=== PATIENT | female | born 1955 | race African-American/Black ===

== ENCOUNTER → 2017-05-06 | Outpatient (CLI) | payer OTHER ==
[~2017-05-06] MED LIST: ALBU1AER INH; ALBUAER3 INH; AMLO5TAB2 PO; CALC1TAB87 PO; CLIN1CAP6 PO; ERGO50000 PO; HYDR-2768 PO; HYDR25TA5 PO; LEVO75TA3 PO; MULT1TAB46 PO; OMEP20CA5 PO; OMEP20TA93 PO; PRED20 PO; REST15CA PO; TEMA15CA PO; TRAM50TA PO; [UNRECOGNIZED DRUG - CODE] PO
== END ==
LOC: CPRE 11:32
PROVIDERS: ATTEND Orthopaedic Surgery Sports Medicine
DX: M17.12 Unilateral primary osteoarthritis, left knee (principal)

== ENCOUNTER 2017-05-20 05:28 | Inpatient (IN) | payer OTHER ==
[~2017-05-20] VITALS: Ht 152.4 cm; Wt 86.5 kg
[~2017-05-20 05:28] MED LIST changes: -ALBU1AER INH; -CLIN1CAP6 PO; -ERGO50000 PO; -HYDR-2768 PO; -OMEP20CA5 PO; -PRED20 PO; -REST15CA PO
[2017-05-20] MEDS ORDERED: ROPIVACAINE PERI-ARTICULAR INJECTION. P-ARTICULR SCH ×5 (06:00)
[2017-05-20] MEDS ORDERED: LACTATED RINGER'S 1000 ML IV PRN (06:00)
[2017-05-20] MEDS ORDERED: VANCOMYCIN 1000 MG/NS 250 ML (for <70 kg) IV SCH ×2 (06:00)
[2017-05-20] MEDS ORDERED: TRANEXAMIC PERI-ARTICULAR 3,000 MG/NS 100 ML P-ARTICULR SCH ×2 (06:00)
[2017-05-20] MEDS ORDERED: CHLORHEXIDINE GLUCONATE 2 % 1 PACK (2 CLOTHS) TOPICAL PRN (06:00)
[2017-05-20] MEDS ORDERED: DEXAMETHASONE SOD PHOS 20 MG/5 ML VIAL IV PRN (06:00)
[2017-05-20] MEDS ORDERED: METOPROLOL TARTRATE 25 MG TAB PO PRN (06:00)
[2017-05-20] MEDS ORDERED: SODIUM CHLORID 0.9% 500 ML IV PRN (06:00)
[2017-05-20] MEDS ORDERED: TRANEXAMIC ACID INJ 1,300 MG in SODIUM CHLORIDE 0.9% INJ 100 ML IV SCH (06:00)
[2017-05-20] MEDS ORDERED: POVIDONE IODINE 7.5% SCRUB 118 ML BOTTLE TOPICAL SCH (06:00)
[2017-05-20] MEDS ORDERED: ACETAMINOPHEN 1000 MG/100 ML 100 ML IV ONE (06:40)
[2017-05-20] MEDS: CHLORHEXIDINE GLUCONATE 4% SOLN 120 ML BTL TOPICAL SCH (07:00)
[2017-05-20] MEDS ORDERED: HYDR-3288 PO (07:07)
[2017-05-20] MEDS ORDERED: ASPI81CH6 CHEW (07:08)
[2017-05-20] MEDS ORDERED: BUPIVACAINE LIPOSOME PF 1.3% 20 ML VIAL ONE (07:12)
[2017-05-20] MEDS ORDERED: LIDOCAINE HCL 1% PF 5 ML AMPULE ONE (07:12)
[2017-05-20] MEDS ORDERED: MIDAZOLAM HCL 2 MG/2 ML VIAL ONE (07:12)
[2017-05-20] MEDS ORDERED: GENTAMICIN SULFATE 80 MG/2 ML VIAL ONE (07:13)
[2017-05-20] MEDS ORDERED: FAT EMULSION 20% INJ 0 ML ONE (07:14)
[2017-05-20] MEDS: POVIDONE IODINE 5% (ANTISEPSIS KIT) 4 APPLICATIONS EACH NARE PRN ×2 (07:15→07:20)
[2017-05-20 07:22] VITALS: PULSE 62
[2017-05-20] MEDS ORDERED: FAMOTIDINE 20 MG/2 ML VIAL ONE (07:51)
[2017-05-20] MEDS ORDERED: ONDANSETRON HCL 4 MG/2 ML VIAL IVP PRN (08:00)
[2017-05-20] MEDS ORDERED: ZOLPIDEM TARTRATE 5 MG TAB PO PRN (08:00)
[2017-05-20] MEDS ORDERED: ACETAMINOPHEN/HYDROcodone 325 MG/7.5 MG TAB PO PRN (08:00)
[2017-05-20] MEDS ORDERED: BISACODYL 10 MG SUPP RECTAL PRN (09:00)
[2017-05-20] MEDS ORDERED: diphenhydrAMINE HCL 50 MG/ML VIAL IV PUSH PRN (09:00)
[2017-05-20] MEDS: PANTOPRAZOLE SOD 20 MG DELAYED RELEASE TAB PO SCH (09:00)
[2017-05-20] MEDS: HYDROCHLOROTHIAZIDE 25 MG TAB PO SCH (09:00)
[2017-05-20] MEDS: amLODIPine BESYLATE 5 MG TAB PO SCH (09:00)
[2017-05-20] MEDS: LEVOTHYROXINE SODIUM 75 MCG TAB PO SCH (09:00)
[2017-05-20] MEDS ORDERED: TEMAZEPAM 15 MG CAP PO PRN (09:00)
[2017-05-20] MEDS ORDERED: HYDROmorphone HCL PF 2 MG/ML VIAL ONE (09:44)
[2017-05-20] MEDS ORDERED: RESP: ALBUTEROL 2.5 MG/IPRATROPIUM 0.5 MG NEB (PRN) NEB (10:30)
--- NOTE | 2017-05-20 10:31 | PD.CONS ---
HPI Service [facility] Hospitalists Consult Requested By Dr. Javed Reason for Consult Post-operative medical management Primary Care Physician Non-Staff Diagnoses: (1) Primary localized osteoarthrosis, lower leg History of Present Illness This is a 61 year old female patient with a past medical history which includes : asthma, lumbar DDD, DM (diet controlled), GERD, HTN, morbid obesity, DAVID no longer wears CPAP, peptic ulcer, hypothyroidism and OA. Patient underwent L knee total arthroplasty 05/20/[address] Javed. We have been consulted to assist with post-operative medical management. Patient seen in PACU is drowsy post- anesthesia therefore information gathered from patient as well as prior charting and outpatient records. Patient reports feeling well. Patient denies pain, N/V or chest pain. Review of Systems Constitutional: COMPLAINS OF: Fatigue, DENIES: Fever, Chills Respiratory: DENIES: Shortness of breath Cardiovascular: DENIES: Chest pain Neurologic: DENIES: Headache, Localized weakness, Speech Problems Psychiatric: DENIES: Anxiety, Confusion, Depression Past Family Social History Past Medical History asthma, lumbar DDD, DM, GERD, HTN, morbid obesity, DAVID no longer uses CPAP, peptic ulcer, hypothyroidism and OA Past Surgical History EGD, colonoscopy, Theodore-en-Y, hysterectomy, tubal ligation Reported Medications Aspirin Low Dose (Aspirin) 81 Mg Chew 81 Mg CHEW BID 30 Days Carter (Hydrocodone-Acetaminophen) 7.5-325 mg Tab 1-2 Tab PO Q6H PRN Levothyroxine (Levothyroxine Sodium) 75 Mcg Tab 75 Mcg PO DAILY Amlodipine (Amlodipine Besylate) 5 Mg Tab 5 Mg PO DAILY Calcium 600 with Vitamin D (Calcium Carbonate-Cholecalciferol) 600-400 mg-Unit Tab 2 Tab PO DAILY Multi Vitamin Daily (Multiple Vitamin) 1 Tab Tab 3 Tab PO DAILY Hydrochlorothiazide 25 Mg Tab 25 Mg PO DAILY Tramadol (Tramadol HCl) 50 Mg Tab 50 Mg PO Q8H PRN Temazepam 15 Mg Cap 15 Mg PO HS PRN Proair Hfa 8.5 GM Inh (Albuterol Sulfate) 90 Mcg/Act Aer 2 Puff INH Q4-6H PRN 108 mcg/actuation Omeprazole 20 Mg Tab 20 Mg PO DAILY D3 (Cholecalciferol) 1,000 Unit Cap 4 Cap PO DAILY Allergies: Coded Allergies: Sulfa (Sulfonamide Antibiotics) (Verified Allergy, Severe, 05/20/17) clindamycin (Verified Allergy, Severe, Rash, 05/20/17) and blisters penicillin G (Verified Allergy, Severe, Nausea/Vomiting, 05/20/17) Family History reviewed and noncontributory Social History denies ETOH use or current tobacco use Physical Exam Vital Signs Vital Signs Date Time Temp Pulse Resp B/P (MAP) Pulse Ox O2 Delivery O2 Flow Rate FiO2 05/20/17 07:22 62 05/20/17 07:22 100 Nasal Cannula 05/20/17 07:14 98.9 64 20 127/70 (89) 99 Physical Exam GENERAL: This is a well-nourished, well-developed patient, groggy post- anesthesia SKIN: post-op dressing dry and intact HEAD: Atraumatic. Normocephalic. No temporal or scalp tenderness. EYES:Extraocular motions intact. No scleral icterus. No injection or drainage. CARDIOVASCULAR: Regular rate and rhythm RESPIRATORY: Clear to auscultation. Breath sounds equal bilaterally. GASTROINTESTINAL: Abdomen soft, non-tender, nondistended. No hepato-splenomegaly , or palpable masses. No guarding. MUSCULOSKELETAL: No calf tenderness. Negative Homans sign bilaterally. NEUROLOGICAL: groggy post-anesthesia no focal deficits noted. Motor and sensory grossly within normal limits. Five out of 5 muscle strength in all muscle groups, with the exception of LLE. Assessment and Plan Problem List: (1) Primary localized osteoarthrosis, lower leg ICD Codes: M17.10 - Unilateral primary osteoarthritis, unspecified knee Plan: Osteoarthritis L knee Patient underwent L knee total arthroplasty 05/20/[address] Tello De La Cruz as needed for pain Lovenox for DVT prophylaxis CBC, BMP in AM asthma duonebs if needed diabetes mellitus ( diet controlled) recommend diabetic diet once patient able to take PO HTN Continue home HCTZ and amlodipine monitor DAVID Patient no longer wears CPAP after weight loss hypothyroidism continue home Synthroid Assessment and Plan Patient examined. Assessment and plan formulated with Mirella Sutherland PA-C. I agree with the above. left tka. seen in PACU and found to be medically stable. home bp meds ordered per ortho. PT/pain meds./dvt prophylaxis/plan for hhc/pt Problem Qualifiers (1) Primary localized osteoarthrosis, lower leg: Qualified Codes: M17.12 - Unilateral primary osteoarthritis, left knee Mirella Sutherland May 20, 2017 10:31 Cuauhtemoc Chaudhari MD May 20, 2017 21:33
[2017-05-20] MEDS ORDERED: DO NOT ADM ANY ANTICOAGULANT DRUGS PRN (10:32)
[2017-05-20] MEDS ORDERED: *MEPERIDINE 25 MG INJ VIAL PERIprocedural Use ONLY ONE (10:34)
[2017-05-20] MEDS: SODIUM CHLOR 0.9% 1000 ML INJ 1,000 ML IV SCH ×2 (11:00→20:01)
--- NOTE | 2017-05-20 11:30 | RADRPT ---
EXAM DATE/TIME: 05/20/2017 10:39 [facility] COMPARISON: No previous studies available for comparison. INDICATIONS : Post-op total left knee arthroplasty. MEDICAL HISTORY : Hypertension. SURGICAL HISTORY : None. ENCOUNTER: Initial ACUITY: 1 day PAIN SCORE: 0/10 LOCATION: Left knee. FINDINGS: 2 views of the knee show a total knee prosthesis in good position. No fracture or dislocation is obse rved. Air and fluid seen within the joint. Soft tissue swelling is noted. CONCLUSION: Totally arthroplasty in good position. Will Flores Jr., MD on May 20, 2017 at 11:28 Board Certified Radiologist. This report was verified electronically.
[2017-05-20] MEDS ORDERED: *morphine SULFATE 10 MG/ML PERIprocedure ONLY ONE (11:36)
--- NOTE | 2017-05-20 11:39 | MP ---
cc: Luis Javed MD DATE OF OPERATION: 05/20/2017 PREOPERATIVE DIAGNOSIS: Left knee osteoarthritis. POSTOPERATIVE DIAGNOSIS: Left knee osteoarthritis. PROCEDURE: Left total knee arthroplasty. SURGEON: Luis Javed MD. CONSULTANT EDUCATION: Alfonso Astudillo PA-C. ANESTHESIA: General with a femoral nerve adductor canal block. TOURNIQUET TIME: Seven minutes at 300 mmHg. ESTIMATED BLOOD LOSS: 250 mL. COMPLICATIONS: None. IMPLANTS USED: DePuy Attune size 5 posterior stabilized femoral component, size 4 rotating platform tibial baseplate, size 38 mm patella, size 7 mm polyethylene tibial insert. JUSTIFICATION: This patient is a 61-year-old female with a history of severe degenerative osteoarthritis involving the left knee. She has severe disabling pain with standing, walking, ambulation and weight-bearing activity and even severe pain at rest. She has failed greater than 3 months of nonoperative conservative treatment to include medication therapy, injections, ambulatory assistive aids, home exercise program, activity modification and weight loss attempts. X-rays of the left knee revealed severe end-stage osteoarthritis with [id number] joint space narrowing, subchondral sclerosis, subchondral osteophyte formation and a large fixed varus deformity with subluxation. The patient was counseled as to the risks, benefits and alternatives to a total knee arthroplasty. The risks were discussed which include, but not limited to anesthesia, bleeding, infection, damage to nerves and blood vessels, pain and stiff, failure of components, blood clots, pulmonary embolism and even . The patient's pain is severe. She favors the benefits over the risks. She did wish to proceed with surgery. PROCEDURE IN DETAIL: Written consent was obtained. The patient identified by name, taken to the operating room and placed supine on the operating room table. General endotracheal anesthesia was administered as well as 1 gram of IV vancomycin. She DOES HAVE PENICILLIN AND CLINDAMYCIN ALLERGY. The anesthesiologist performed an ultrasound guided femoral nerve adductor canal block. A well-padded tourniquet was placed on the left thigh. The left lower extremity prepped and draped using isopropyl alcohol, Hibiclens solution and ChloraPrep solution. After a time-out was performed, an Esmarch bandage was used to exsanguinate the left lower extremity. The tourniquet was inflated to 300 mmHg. A longitudinal incision made over the anterior aspect of the left knee. A medial parapatellar arthrotomy was performed. The patella was everted. The patella resection guide was used to resect 9 mm of patella. A size 38 mm guide was placed and three drill holes were placed. The 38 mm trial fit well. The patient had a lot of venous bleeding with the tourniquet. She has significant obesity and at this point I dropped the tourniquet which made really no difference in regards to her bleeding. Bovie cautery was used for hemostasis. Attention was turned to the femur where an intramedullary guide was placed and the distal femoral guide was set to remove 10 mm of distal femur, 5 degrees up the anatomic valgus axis alignment. An oscillating saw was used to perform the distal femoral cut. Attention was turned back to the tibia where an extramedullary tibial guide was set to remove 4 mm off the lowest portion of the medial tibial plateau. The tibia guide was pinned in place and the tibial cut was performed. A 5 mm spacer block showed full extension. Attention was turned back to the femur where an AP sizer block measured a size 5. The anterior reference 3 degree external rotation guide was used to pin a size [address] The anterior, posterior and chamfer cuts were performed. A size 5 PCL box cut was pinned in place and PCL was box cut with an oscillating saw. The medial and lateral meniscus from this were removed, so was bone and soft tissue debris from the posterior portion of the knee. A size 4 tibia baseplate was pinned in place and the tibia was drilled with a punch. The patient, because of her significant fixed varus deformity and contracture, I released a portion of the MCL which allowed for appropriate varus/valgus balance. The trial components were evaluated and final components cemented in place with the current components. The leg could achieve full extension to 0 degrees and flexion to approximately 140. No evidence of tibial lift off. Varus/valgus balance appeared to be appropriate and symmetric and the patella was noted to track centrally. The knee was thoroughly irrigated with sterile saline pulse lavage antibiotic impregnated solution. The arthrotomy incision was closed with #1 Vicryl suture. The subcutaneous layer was closed with 2-0 Vicryl suture and the skin was closed with Dermabond. Sterile dressings were applied. The patient tolerated the procedure well. No intraoperative complication noted. Alfonso Astudillo, Physician Educational Administration Teacher Certified, was present for the entire procedure to include patient positioning and the procedure itself. The medical necessity of a physician marketing operations assistant was indicated in this case due to the complexity of the procedure. He assisted with appropriate manipulation of the leg and also retraction of the muscle, tendon, bone and neurovascular structures. He assisted with appropriate manipulation of bone and also implantation of the prosthetic replacement. Luis Javed MD JWM/JERRI/ , 10:07 AM , 10:51 AM
[2017-05-20] MEDS ORDERED: SODIUM CHLORIDE 0.9% 20 ML VIAL IV ONE (12:00)
[2017-05-20] MEDS ORDERED: DEXAMETHASONE SOD PHOS 4 MG/ML VIAL IV ONE (12:00)
[2017-05-20] MEDS ORDERED: PROPOFOL 200 MG/20 ML AMP IV ONE (12:00)
[2017-05-20] MEDS ORDERED: LABETALOL HCL 100 MG/20 ML VIAL IV ONE (12:00)
[2017-05-20] MEDS ORDERED: LIDOCAINE HCL 1% PF 5 ML SYRINGE OTHER ONE (12:00)
[2017-05-20] MEDS ORDERED: METOPROLOL TARTRATE 5 MG/5 ML VIAL IV PUSH ONE (12:00)
[2017-05-20] MEDS ORDERED: LACTATED RINGER'S 250 ML IV ONE (12:00)
[2017-05-20] MEDS ORDERED: ONDANSETRON HCL 4 MG/2 ML VIAL IV ONE (12:00)
[2017-05-20] MEDS ORDERED: hydrALAZINE HCL 20 MG/ML VIAL IV ONE (12:00)
--- NOTE | 2017-05-20 13:45 | HHI.DCPOC ---
Discharge Care Plan Diagnosis: (1) Primary localized osteoarthrosis, lower leg Your Health Problems Are: Difficulty with ADL Goals to Promote Your Health * To prevent worsening of your condition and complications * To maintain your health at the optimal level Directions to Meet Your Goals Take your medications as prescribed Follow your dietary instruction Follow activity as directed Keep your appointments as scheduled Take your immunizations and boosters as scheduled If your symptoms worsen call your PCP, if no PCP go to Urgent Care Center or Emergency Room Smoking is Dangerous to Your Health. Avoid second hand smoke Call the 24-hour hour crisis hotline for domestic abuse at Luis Astudillo May 20, 2017 13:45
--- NOTE | 2017-05-20 13:46 | HHI.FF ---
Face to Face Verification Diagnosis: (1) Primary localized osteoarthrosis, lower leg Physical Therapy Gait training, Safety evaluation, Transfer training, bed to chair Knee: Total knee, Protocol: Left Left LE Weight Bearing: WB as tolerated Nursing RN: 3 days/week x 2 weeks Nursing: Dressing changes Dressing Changes: Daily dressing change I have seen patient Marie Lees on 05/20/17. My clinical findings support the need for the requested home health care services because: Limited ability to care for self High risk of falls I certify that my clinical findings support that this patient is homebound because: Post-op weakness Unsteady gait/balance Luis Astudillo May 20, 2017 13:46
[2017-05-20] MEDS ORDERED: Post-op Orders (for Pharmacy) XX ONE (14:32)
[2017-05-20] MEDS: MORPHINE SULFATE 4 MG/ML INJ IV PUSH PRN ×2 (15:59→20:09)
[2017-05-20 17:00] VITALS: BP 110/57; PULSE 77; RESP 15; TEMP 95.5; O2SAT 94
[2017-05-20] MEDS: CHOLECALCIFEROL (VIT D3) 1000 UNIT TAB PO SCH (17:03)
[2017-05-20] MEDS: VANCOMYCIN INJ 1,000 MG in SODIUM CHLOR 0.9% 250 ML INJ 250 ML IV SCH (19:53)
[2017-05-20 21:30] VITALS: BP 105/57; PULSE 76; RESP 16; TEMP 97.3; O2SAT 95
[2017-05-21 01:50] VITALS: BP 110/57; PULSE 82; RESP 16; TEMP 98.2; O2SAT 98
[2017-05-21] MEDS: SODIUM CHLOR 0.9% 1000 ML INJ 1,000 ML IV SCH (05:00)
[2017-05-21 05:30] VITALS: BP 108/62; PULSE 80; RESP 16; TEMP 98.5; O2SAT 96
[2017-05-21] MEDS: LEVOTHYROXINE SODIUM 75 MCG TAB PO SCH (05:46)
[2017-05-21] MEDS: ACETAMINOPHEN/HYDROcodone 325 MG/7.5 MG TAB PO PRN ×3 (05:47→13:22)
[2017-05-21 07:24] VITALS: BP 131/71; PULSE 100; RESP 18; TEMP 98.7; O2SAT 96
--- NOTE | 2017-05-21 08:19 | PD.ORT.PN ---
Subjective Post Op Day #: 1 Subjective Remarks doing well. pain tolerable. Objective Vitals Vital Signs Date Time Temp Pulse Resp B/P (MAP) Pulse Ox O2 Delivery O2 Flow Rate FiO2 05/21/17 07:24 98.7 100 18 131/71 (91) 96 05/21/17 05:30 98.5 80 16 108/62 (77) 96 05/21/17 01:50 98.2 82 16 110/57 (74) 98 05/20/17 21:30 97.3 76 16 105/57 (73) 95 05/20/17 17:00 95.5 77 15 110/57 (74) 94 05/20/17 16:30 97.8 68 16 114/65 (81) 95 Room Air 05/20/17 16:04 15 05/20/17 16:00 67 16 115/66 (82) 95 Room Air 05/20/17 15:00 69 16 119/63 (81) 95 Room Air 05/20/17 14:00 70 15 117/62 (80) 94 Room Air 05/20/17 13:00 69 15 116/68 (84) 99 Nasal Cannula 2 05/20/17 12:00 70 15 113/65 (81) 97 Nasal Cannula 2 05/20/17 11:45 72 15 112/61 (78) 98 Nasal Cannula 2 05/20/17 11:41 15 05/20/17 11:34 15 05/20/17 11:30 75 15 115/60 (78) 97 Nasal Cannula 2 05/20/17 11:15 78 15 110/65 (80) 97 Nasal Cannula 2 05/20/17 11:00 77 14 117/68 (84) 100 Nasal Cannula 3 05/20/17 10:45 80 14 118/71 (87) 98 Nasal Cannula 3 05/20/17 10:30 98.0 85 12 122/72 (89) 100 Nasal Cannula 4 I/O 05/20/17 05/20/17 05/20/17 05/21/17 05/21/17 05/21/17 07:00 15:00 23:00 07:00 15:00 23:00 Intake Total 1500 ml 1800 ml 480 ml Output Total 550 ml 550 ml 250 ml Balance 950 ml 1250 ml 230 ml Intake Oral 480 ml IV Total 1500 ml 1800 ml Output Urine Total 300 ml 550 ml 250 ml Estimated Blood Loss 250 ml # Voids 1 1 # Bowel Movements 0 Objective Remarks in bed, nad dressing c/d/i neg homans nvi Assessment & Plan Ortho Post Op Day #: 1 Problem List: Assessment and Plan s/p L TKA wbat ok to maintain dressing unless saturated lovenox, d/c on [id number] d/c planning home with hhc and pt - cleared today if does well in PT rx in chart f/up dr. garcia 2 weeks Luis Astudillo May 21, 2017 08:19
[2017-05-21] MEDS ORDERED: CPMMACHINE (08:20)
[2017-05-21 08:35] LABS: HEMATOCRIT 31.5 % (35.0-46.0); HEMOGLOBIN 10.7 GM/DL (11.6-15.3); MEAN CELL VOLUME 84.3 FL (80.0-100.0); MEAN CORPUSCULAR HEMOGLOBIN 28.6 PG (27.0-34.0); MEAN CORPUSCULAR HGB CONC 33.9 % (32.0-36.0); MEAN PLATELET VOLUME 8.1 FL (7.0-11.0); PLATELET COUNT 206 TH/MM3 (150-450); RED BLOOD COUNT 3.73 MIL/MM3 (4.00-5.30); RED CELL DISTRIBUTION WIDTH 15.2 % (11.6-17.2); WHITE BLOOD COUNT 11.5 TH/MM3 (4.0-11.0)
[2017-05-21 09:00] LABS: BICARBONATE 26.1 MEQ/L (21.0-32.0); CALCIUM 8.2 MG/DL (8.5-10.1); CREATININE 0.75 MG/DL (0.50-1.00)
[2017-05-21] MEDS: amLODIPine BESYLATE 5 MG TAB PO SCH (09:21)
[2017-05-21] MEDS: CHOLECALCIFEROL (VIT D3) 1000 UNIT TAB PO SCH (09:21)
[2017-05-21] MEDS: PANTOPRAZOLE SOD 20 MG DELAYED RELEASE TAB PO SCH (09:22)
[2017-05-21] MEDS: HYDROCHLOROTHIAZIDE 25 MG TAB PO SCH (09:22)
[2017-05-21] MEDS ORDERED: ENOXAPARIN SODIUM 40 MG/0.4 ML SYRINGE SQ SCH (09:30)
[2017-05-21] MEDS: VANCOMYCIN INJ 1,000 MG in SODIUM CHLOR 0.9% 250 ML INJ 250 ML IV SCH (09:31)
[2017-05-21 11:29] VITALS: BP 157/58; PULSE 82; RESP 18; TEMP 98.6; O2SAT 97
[2017-05-21] MEDS ORDERED: POTASSIUM CHLORIDE 20 MEQ CONTROLLED RELEASE TAB PO ONE (12:00)
[2017-05-21 12:50] VITALS: O2SAT 97
[2017-05-21] MEDS ORDERED: MULTIVITAMINS/MINERALS THERAPEUTIC TAB PO SCH (21:00)
[2017-05-21] MEDS ORDERED: DOCUSATE SODIUM 100 MG CAP PO SCH (21:00)
== END 2017-05-21 13:13 | disposition home health service (06) | DRG 470 ==
LOC: HSDC 05:28 → HSDI 07:07 → N06B 16:59
PROVIDERS: ADMIT Orthopaedic Surgery Sports Medicine; ATTEND Orthopaedic Surgery Sports Medicine
PROC: 3E0T3BZ Introduction of Anesthetic Agent into Peripheral Nerves and Plexi, Percutaneous Approach (ICD-10-PCS; 2017-05-20)
PROC: 0SRD0J9 Replacement of Left Knee Joint with Synthetic Substitute, Cemented, Open Approach (ICD-10-PCS; principal; 2017-05-20 08:07)
DX: M17.12 Unilateral primary osteoarthritis, left knee (principal); E66.01 Morbid (severe) obesity due to excess calories; I10 Essential (primary) hypertension; E11.9 Type 2 diabetes mellitus without complications; J45.909 Unspecified asthma, uncomplicated; K21.9 Gastro-esophageal reflux disease without esophagitis; G47.33 Obstructive sleep apnea (adult) (pediatric); E03.9 Hypothyroidism, unspecified; E78.5 Hyperlipidemia, unspecified; M51.36 Other intervertebral disc degeneration, lumbar region; Z68.37 Body mass index [BMI] 37.0-37.9, adult; Z98.84 Bariatric surgery status; Z87.891 Personal history of nicotine dependence
CPT/HCPCS: 73560; 80048; 85027; 86850; 86900; 86901; 94150; C1776; C9290; J0131; J0360; J0735; J1100; J1170; J1580; J1650; J1885; J2175; J2250; J2270; J2405; J2795; J3010; J3370; J7030; J7050; J7120; L1830